=== PATIENT | female | born 1965 | race Caucasian/White ===

== ENCOUNTER 2018-01-10 16:31 | Observation (INO) | payer MEDICAID, SELFPAY ==
[2018-01-10] VITALS (9 sets, daily range): BP systolic 115–143; BP diastolic 49–71; PULSE 62–82; RESP 14–18; TEMP 36.4–36.6; O2SAT 97–100; BMI 30.1; BMI 30.2
--- NOTE | 2018-01-10 16:44 | EKG12_ITS ---
Test Reason : CP Blood Pressure : / mmHG Vent. Rate : 064 BPM Atrial Rate : 064 BPM P-R Int : 148 ms QRS Dur : 088 ms QT Int : 398 ms P-R-T Axes : 041 006 017 degrees QTc Int : 410 ms Normal sinus rhythm with sinus arrhythmia Normal ECG Confirmed by ERICK BOYKIN, EDUARDO ([id number]), editor producer FILOMENA KIM ([id number] on 01/12/2018 2:15:55 PM Referred By: CHANELL/HAILEY Confirmed By:EDUARDO SUAREZ MD
--- NOTE | 2018-01-10 16:45 | RAD_ITS ---
STUDY: X-RAY CHEST REASON FOR EXAM: Female, 52 years old. Chest pain with right leg pain. History of DVT. TECHNIQUE: Single frontal view of the chest. COMPARISON: October 31, 2017 FINDINGS: The lungs are clear and expanded. There is no demonstrated pleural abnormality. Normal size heart. Normal mediastinum and gay. Normal visualized pulmonary arteries. Normal visualized aortic arch and descending thoracic aorta. Normal visualized thoracic spine. Normal visualized ribs, clavicles, and shoulders. There is no demonstrated abnormality of the visualized soft tissue structures of the upper abdomen. RAD/Chest 1 View (Portable) IMPRESSION: No interval change and no acute pathology. Electronically Signed: Roosevelt Galindo MD at 17:10 EST , Service support ,
[2018-01-10 17:13] LABS: Bacteria 0 SEEN /hpf (None Seen); Mucous, Urine 0 SEEN /hpf (<or=2+); Red Blood Cells-Urine 0 SEEN /hpf (0-5)
[2018-01-10] MEDS: Aspirin 81 MG TAB.CHEW 324 MG PO (17:17)
--- NOTE | 2018-01-10 17:20 | ED.DCSUM_ITS ---
- ER Visit Summary Date of Service: 01/10/18 Chief Complaint: Chest pain History of Present Illness: The patient is a 52 F presenting from her doctor's office for chest pain. Patient states that she has had intermittent chest pain for the past 5 days. She states it radiates to her left arm. It is associated shortness of breath. She states she was admitted in October for similar complaints and had a stress test which was unremarkable. She also states that she was recently diagnosed with a UTI. She was on Cipro which she states gave her diarrhea. She was changed to Bactrim. She states she had side effects of Bactrim also and was changed to Macrobid. She is unsure if she still has a UTI. She has history of hypertension. Remote history of DVT. She is not on anticoagulants. No other coronary artery disease risk factor. No other PE/DVT risk factors. Physical Examination: Vitals are stable. Patient is afebrile. Alert no acute distress. HEENT exam is unremarkable. Neck is supple. Lungs are clear and equal bilaterally. Heart is regular rate and rhythm. Abdomen is soft nontender nondistended. Extremities are right calf tenderness. No erythema or warmth. Normal distal pulses. Skin is warm and dry. No focal neurologic deficit. Remainder of exam is unremarkable. Emergency Department Course and Treatment: Patient was given aspirin on arrival. EKG sinus rhythm rate of 64. Right lower extremity venous Doppler shows no DVT. Chest xray shows no acute process. CBC, chemistries unremarkable. Urinalysis is normal. Troponin is negative. D-dimer is elevated 2.84. Due to elevated d-dimer CTA chest was obtained and shows no evidence of PE. Discussed with Dr. Faulkner and hospitalist for admission. Disposition: Admission Impression: Chest pain This note was generated with [employer] dictation software. It may contain incorrect words, spelling, and punctuation that were not noted in review of the chart prior to signing ED Disposition - Plan for ED Patient: Chief Complaint: Chest Pain Referrals: Sabrina Ochoa MD [Primary Care Provider] -
[2018-01-10 17:21] LABS: Absolute Lymphocyte Count 3.37 X10^3/ul (0.83-4.51); Absolute Neutrophil Count 4.8 X10^3/uL (2.0-7.7); Basophil# 0.05 X10^3/uL; Basophil% 0.6 % (0-1); Eosinophil# 0.21 X10^3/uL; Eosinophils% 2.3 % (0-5); Hematocrit 40.9 % (37-47); Hemoglobin 13.7 g/dl (12.0-15.0); Lymphocyte # 3.37 X10^3/ul (4.0); Lymphocyte % 37.1 % (19-41); Mean Corp Hgb Conc 33.5 g/gl (32-36); Mean Corpuscular Hgb 28.8 pg (27.0-32.0); Mean Corpuscular Volume 85.9 fL (81-99); Monocyte# 0.63 X10^3/uL; Monocyte% 6.9 % (0-10); Neutrophil # 4.82 X10^3/uL (2.7-7.7); Platelet Count 297 K/mm3 (150-450); RBC Distribution Width CV 13.3 % (11.6-14.6); RBC Distribution Width SD 41.2 fl (35.1-43.9); Red Blood Count 4.76 M/mm3 (4.2-5.4); White Blood Count 9.1 K/mm3 (4.4-11.0)
--- NOTE | 2018-01-10 17:21 | US_ITS ---
STUDY: VENOUS DOPPLER ULTRASOUND - RIGHT LOWER EXTREMITY REASON FOR EXAM: Female, 52 years old. Right posterior calf pain TECHNIQUE: Ultrasound evaluation of the deep vein system to include lugo-scale imaging and compression was performed. Lugo-scale imaging and Doppler sonographic evaluation, including duplex spectral analysis and qualitative color flow sonography, was performed. COMPARISON: None. FINDINGS: Common Femoral Vein: Normal compression, spontaneity and augmentation. Normal color Doppler. Common Femoral Vein/Greater Saphenous Junction: Normal compression. No internal echoes. Deep Femoral Vein: Not imaged Femoral Proximal: Normal compression and no internal echoes. Femoral Middle: Normal compression, spontaneity and augmentation. Normal color Doppler. Femoral Distal: Normal compression and no internal echoes. Popliteal Vein: Normal compression, spontaneity and augmentation. Normal color Doppler. Posterior Tibial Vein: Normal compression and no internal echoes. Peroneal Vein: Normal compression and no internal echoes. US/Venous Duplex Imag/Limited/Uni IMPRESSION: Normal venous Doppler ultrasound of the lower extremity. Electronically Signed: Eris Whitfield MD at 18:21 EST , Service support ,
[2018-01-10 17:25] LABS: POSITIVE COUNT NO; POSITIVE DIFFERENTIAL NO; POSITIVE MORPHOLOGY NO
[2018-01-10 17:28] LABS: D-Dimer Quantitative (DVT/PE) 2.84 FEU/ug/m (0.27-0.49)
--- NOTE | 2018-01-10 17:28 | CT_ITS ---
STUDY: CTA CHEST REASON FOR EXAM: Female, 52 years old. Chest pain, elevated d-dimer RADIATION DOSAGE (If Supplied By Facility): CTDIvol = ( 12.42 ) mGy, DLP = ( 519.27 ) mGycm TECHNIQUE: The examination was performed with the intravenous administration of 100ML ml of Isovue 300 contrast material. Post-processing of the angiographic images was performed, with multiplanar reformation and 3D reconstruction. Individualized dose optimization techniques were used for this CT. COMPARISON: Previous study of 10/31/2017 FINDINGS: There is limited enhancement of the main pulmonary artery and right and left pulmonary arteries. There is limited enhancement of the bilateral peripheral pulmonary arteries. There is no demonstrated pulmonary embolism. Normal thoracic aorta and visualized great vessels. There is no demonstrated aortic dissection. Normal heart and pericardium. Normal mediastinum. Normal hilar regions. Normal visualized trachea and bronchi. The lungs are well expanded. Normal pulmonary parenchyma. Normal pleura. Normal chest wall structures. There are degenerative changes of thoracic spine. Status post cholecystectomy changes are noted. There are numerous scattered hepatic cysts measuring up to 1.[address]/CTA Chest W/WO Contrast IMPRESSION: Limited study secondary to suboptimal opacification of the pulmonary arterial system. There is no demonstrable evidence of pulmonary embolism. Status post cholecystectomy. Scattered hepatic cysts measuring up to 1.8 cm in diameter. Electronically Signed: Eris Whitfield MD at 19:15 EST , Service support ,
[2018-01-10 17:32] LABS: Color, Urine Yellow (Yellow); Glucose, Dipstick Normal (Normal); Ketone-Dipstick Negative (Negative); Leukocyte Esterase-Dipstick 25 /ul (Negative); Nitrite-Dipstick Negative (Negative); Occult Blood-Urine Negative /ul (Negative); Protein-Dipstick Negative (Negative); Specific Gravity, Urine 1.025 (1.002-1.030); Urine Bilirubin Dipstick Negative (Negative); Urine Clarity Clear (Clear); Urine Urobilinogen Normal (Normal)
[2018-01-10 17:35] LABS: Anion Gap 4 (5-15); BUN 16 mg/dL (7-18); BUN/Creat Ratio 28.1 RATIO (10-20); Calcium,Total 9.2 mg/dL (8.5-10.1); Chloride 107 mmol/L (98-107); Creatinine, Serum 0.57 mg/dL (0.55-1.02); EST Glomerular Filtration Rate 118 mL/min (>60); Est Glom Filt Rate - Afr Amer 142 mL/min (>60); Estimated Creatinine Clearance 97.43 ml/min; Glucose 94 mg/dL (74-106); Potassium 3.6 mmol/L (3.5-5.1); Sodium Level 141 mmol/L (136-145)
[2018-01-10 17:56] LABS: Squamous Epithelial Cells - UA 0-5 SEEN /hpf (5-10); White Blood Cells 0-5 SEEN /hpf (0-5)
--- NOTE | 2018-01-10 20:57 | PCM.HP.STD ---
Problem List (1) Chest pain Status: Acute Qualifiers: Chest pain type: unspecified Qualified Code(s): R07.9 - Chest pain, unspecified History of Present Illness Date of Admission: 01/10/18 Chief Complaint: chest pain The patient is a 52 year old female patient who states she woke up this morning with chest pain. She has been having chest pain symptoms for the past few months. She in fact, had a negative cardiac stress test in October of 2017. She described the pain as substernal pressure that radiated toward her right shoulder. The pain is now gone. No nausea or vomiting or fevers or chills. She will be admitted for heart catheterization in the am to rule out cardiac etiology of this chest pain. Past Medical History Allergies lisinopril Allergy (Severe, Verified 01/10/18 16:35) Angioedema metoprolol succinate [From Toprol XL] Allergy (Severe, Verified 01/10/18 16:35) Angioedema buspirone HCl [From BuSpar] Allergy (Verified 01/10/18 16:35) Unknown clindamycin Allergy (Verified 01/10/18 16:35) Unknown metronidazole Allergy (Verified 01/10/18 16:35) Unknown progesterone Allergy (Verified 01/10/18 16:35) Unknown ranitidine HCl [From Zantac] Allergy (Verified 01/10/18 16:35) Unknown Home Medications: Ambulatory Orders Medication Instructions Recorded Verapamil [Calan] 40 mg PO BID 05/16/15 Cholecalciferol (VIT D3) [Vitamin 4,000 unit PO DAILY 08/01/16 D3] Nitroglycerin [Nitrostat] 0.4 mg SL PRN PRN 10/31/17 Surgical History: cholecystectomy, - - [employer] History: No pertinent [employer] history Smoking Status: Never smoker - *Family History Maternal History Items: Heart Disease Paternal History Items: Unknown Sibling History Items: Cancer Review of Systems Constitutional: Denies: Chills, Fever, Weight Change HEENT: Denies: Head Aches, Sinus Congestion, Sinus Drainage Cardiovascular: Reports: Chest Pain. Denies: Palpitations Respiratory: Denies: Cough, Shortness of breath at rest, Sputum production Gastrointestinal: Denies: Abdominal Pain, Nausea, Vomiting Genitourinary: Denies: Dysuria Musculoskeletal: Denies: Joint Pain, Joint Tenderness Skin: Denies: Rash, Wounds Neurological: Denies: Numbness, Tingling, Focal weakness Psychiatric: Denies: Anxiety, Depression, Homicidal Ideations, Suicidal Ideations Hematologic/ Lymphatic: Denies: Easy Bruising, Easy Bleeding VTE Information - Inpt Only VTE Present on Admission: No VTE Mechan Device Prophylaxis: None VTE Pharm Prophylaxis ordered?: Yes - Physical Exam General: Alert, Oriented x3, Cooperative HEENT: Atraumatic, Normocephalic Neck: Supple Lungs: Clear to auscultation, Normal air movement, No rhonchi, No wheeze, No rales Cardiovascular: Regular rate, Regular Rhythm, Normal S1, Normal S2, No murmurs Abdomen: Bowel Sounds Present, Soft, Non Tender, Obese Extremities: No edema, Capillary Refill Less than 3 Seconds Skin: No rashes Musculoskeletal: No Tenderness to Palpation of Joints or Extremities Neurological: Neuro grossly intact Psych/Mental Status: Normal Affect, Appropriate Vital Signs Temp Pulse Resp BP Pulse Ox 97.6 F L 63 18 143/71 H 98 01/10/18 16:32 01/10/18 19:59 01/10/18 19:59 01/10/18 19:59 01/10/18 19:59 Oxygen Delivery Method Room Air Weight: 175 lb 11.335 oz Body Mass Index (BMI) 30.1 Laboratory Tests Past 24 Hrs 01/10/18 01/10/18 01/10/18 16:39 16:39 16:39 WBC 9.1 RBC 4.76 Hgb 13.7 Hct 40.9 MCV 85.9 MCH 28.8 MCHC 33.5 RDW 13.3 RDW Differential 41.2 Plt Count 297 MPV 10.0 Immature Gran % (Auto) 0.100 Neut % (Auto) 53.0 Lymph % (Auto) 37.1 [place] % (Auto) 6.9 Eos % (Auto) 2.3 Baso % (Auto) 0.6 Absolute Neuts (auto) 4.8 Absolute Lymphs (auto) 3.37 Total Counted Not Reportable D-Dimer Quant (PE/DVT) 2.84 H* Sodium 141 Potassium 3.6 Chloride 107 Carbon Dioxide 30.0 Anion Gap 4 L BUN 16 Creatinine 0.57 Estim Creat Clear Calc 97.43 Est GFR (MDRD) Af Amer 142 Est GFR (MDRD) Non-Af 118 BUN/Creatinine Ratio 28.1 H Glucose 94 Calcium 9.2 Troponin I < 0.02 Urine Color Urine Clarity Urine pH Ur Specific [place] Urine Protein Urine Glucose (UA) Urine Ketones Urine Occult Blood Urine Nitrite Urine Bilirubin Urine Urobilinogen Ur Leukocyte Esterase Urine RBC Urine WBC Ur Squamous Epith Cells Urine Bacteria Urine Mucus 01/10/18 17:05 WBC RBC Hgb Hct MCV MCH MCHC RDW RDW Differential Plt Count MPV Immature Gran % (Auto) Neut % (Auto) Lymph % (Auto) [place] % (Auto) Eos % (Auto) Baso % (Auto) Absolute Neuts (auto) Absolute Lymphs (auto) Total Counted D-Dimer Quant (PE/DVT) Sodium Potassium Chloride Carbon Dioxide Anion Gap BUN Creatinine Estim Creat Clear Calc Est GFR (MDRD) Af Amer Est GFR (MDRD) Non-Af BUN/Creatinine Ratio Glucose Calcium Troponin I Urine Color Yellow Urine Clarity Clear Urine pH 6.0 Ur Specific [place] 1.025 Urine Protein Negative Urine Glucose (UA) Normal Urine Ketones Negative Urine Occult Blood Negative Urine Nitrite Negative Urine Bilirubin Negative Urine Urobilinogen Normal Ur Leukocyte Esterase 25 H Urine RBC 0 SEEN Urine WBC 0-5 SEEN Ur Squamous Epith Cells 0-5 SEEN Urine Bacteria 0 SEEN Urine Mucus 0 SEEN Assessment/Plan Assessment - Chest Pain Plan - admit to PCU - NPO at midnight - Consult Dr Faulkner for cardiac management - morphine, oxygen , nitro and apirin per routine protocol - continue routine home medications for stable medical conditions - LMWH for DVT prophylaxis Code Visit Inpatient E&M: 07045 Init Hosp L3
[2018-01-11 03:08] VITALS: PULSE 58
[2018-01-11 03:30] VITALS: BP 110/62; PULSE 60; RESP 18; TEMP 36.5; O2SAT 99
--- NOTE | 2018-01-11 05:55 | EKG12_ITS ---
Test Reason : MORNING EKG Blood Pressure : / mmHG Vent. Rate : 073 BPM Atrial Rate : 073 BPM P-R Int : 158 ms QRS Dur : 082 ms QT Int : 394 ms P-R-T Axes : 055 037 030 degrees QTc Int : 434 ms Normal sinus rhythm Normal ECG When compared with ECG of 10-JAN-2018 16:34, MANUAL COMPARISON REQUIRED, DATA IS UNCONFIRMED Confirmed by ERICK BOYKIN, EDUARDO ([id number]), editorial specialist FILOMENA KIM ([id number]) on 01/12/2018 2:46:56 PM Referred By: Confirmed By:EDUARDO SUAREZ MD
--- NOTE | 2018-01-11 07:07 | CON.PCM_ITS ---
Reason for Consult Date of Consultation: 01/11/18 Reason for Consultation: Chest pain History of Present Illness: The patient is a 52 year old F with no previous cardiac history who presented to the emergency room complaining of chest discomfort which she says also radiated to her left arm. It was not necessarily related to activity there were no associated palpitations no nausea no diaphoresis no dizziness no presyncope or syncope. She says that approximately 2 or 3 years ago she underwent a pharmacologic myocardial perfusion stress test which was normal and she was subsequently diagnosed with sleep apnea. She had presented in October of last year as well with chest discomfort she underwent an echocardiogram which demonstrated preserved ejection fraction of 55% with 1+ mitral and tricuspid regurgitation. She also underwent stress testing which did not demonstrate any evidence of ischemia. She recently had a urinary tract infection and was placed on antibiotics and she said she had a reaction to this. She has also had a change to the antibiotics and afterwards she started having the above problems. She also has a history of fibromyalgia. In the emergency room she was evaluated and EKG was noted to be normal and a d-dimer was elevated and so she underwent a CT scan which was normal. Cardiac enzymes were also normal with no EKG changes cardiology was asked to see this morning. Currently she is pain-free [] [] Past Medical History Allergies/Adverse Reactions: Allergies lisinopril Allergy (Severe, Verified 01/10/18 16:35) Angioedema metoprolol succinate [From Toprol XL] Allergy (Severe, Verified 01/10/18 16:35) Angioedema buspirone HCl [From BuSpar] Allergy (Verified 01/10/18 16:35) Unknown clindamycin Allergy (Verified 01/10/18 16:35) Unknown metronidazole Allergy (Verified 01/10/18 16:35) Unknown progesterone Allergy (Verified 01/10/18 16:35) Unknown ranitidine HCl [From Zantac] Allergy (Verified 01/10/18 16:35) Unknown Home Medications: Ambulatory Orders Medication Instructions Recorded Verapamil [Calan] 40 mg PO BID 05/16/15 Cholecalciferol (VIT D3) [Vitamin 4,000 unit PO DAILY 08/01/16 D3] Nitroglycerin [Nitrostat] 0.4 mg SL PRN PRN 10/31/17 Surgical History: cholecystectomy, - - [employer] History: No pertinent [employer] history - *Family History Maternal History Items: Heart Disease Paternal History Items: Unknown Sibling History Items: Cancer Smoking Status: Never smoker Alcohol: None Drugs: None Review of Systems - Review of Systems General: Denies: Fever, Night Sweats, Fatigue Cardiovascular: Reports: Chest Discomfort. Denies: Shortness of Breath, Orthopnea, PND, Peripheral Edema, Palpitations, Lightheadedness, Dizziness, Near Syncope, Syncope Respiratory: Denies: Cough, Sputum Production, Hemoptysis Gastrointestinal: Denies: Hematemesis, Hematochezia, Melena Genitourinary: Denies: Dysuria, Hematuria Skin: Denies: Rash Subjectve: Middle aged lady in no distress but rather anxious Objective: Vital Signs Temp Pulse Resp BP Pulse Ox 97.7 F L 60 18 110/62 99 01/11/18 03:30 01/11/18 03:30 01/11/18 03:30 01/11/18 03:30 01/11/18 03:30 Oxygen Delivery Method Room Air Weight: 175 lb 11.335 oz Body Mass Index (BMI) 30.1 Intake and Output for Last 24 Hours 01/09/18 01/10/18 01/11/18 23:59 23:59 23:59 Intake Total 240 / 240 0 / 0 Balance 240 / 240 0 / 0 General: Awake, Alert, Oriented x 3 HEENT: PERRL, EOMI, Sclera Non Icteric Neck: Supple, Good ROM, No Lymph Node Enlargement Lungs: Clear to auscultation Cardiovascular: Regular Rhythm, Normal S1, Normal S2, No Murmurs, No Rubs, No Gallops Vascular: No Carotid Bruits, Normal Femoral Pulses, Normal Radial Pulses, Normal Dorsalis Pedal Pulse, Normal Posterior Tibial Pulses Abdomen: Bowel Sounds Present, Soft, Non Tender, No HSM, No Organomegaly Extremities: No Cyanosis, No Clubbing, No edema Neurological: No Focal Motor or Sensory Deficit 01/10/18 22:41: Troponin I < 0.02 01/11/18 02:15: Troponin I < 0.02 Rhythm: EKG: Sinus rhythm with no acute changes. Assessment/Plan 1. Chest pain-atypical He presents once again with chest discomfort which is rather atypical. She has recently undergone a stress test as well as a myocardial perfusion scan both of which are normal. Her EKG is normal and cardiac enzymes are normal. I do not feel on the basis of this that we need to perform a cardiac catheterization just to include coronary disease when her FRANCISCA risk factor score is so low and her symptoms atypical. I would suggest reassurance and treatment for also GI related issues. I have discussed the above with her and she understands and agrees to proceed I think she can be discharged for outpatient follow-up.
[2018-01-11 07:08] VITALS: PULSE 62
[2018-01-11 07:49] LABS: Absolute Neutrophil Count 3.8 X10^3/uL (2.0-7.7); Basophil# 0.03 X10^3/uL; Basophil% 0.5 % (0-1); Eosinophil# 0.15 X10^3/uL; Eosinophils% 2.3 % (0-5); Hematocrit 38.4 % (37-47); Hemoglobin 12.9 g/dl (12.0-15.0); Lymphocyte % 29.2 % (19-41); Mean Corp Hgb Conc 33.6 g/gl (32-36); Mean Corpuscular Hgb 28.7 pg (27.0-32.0); Mean Corpuscular Volume 85.5 fL (81-99); Mean Platelet Vol. 9.6 fl (6.2-12.0); Monocyte# 0.65 X10^3/uL; Neutrophil # 3.77 X10^3/uL (2.7-7.7); Neutrophil % 57.8 % (47-70); Platelet Count 271 K/mm3 (150-450); RBC Distribution Width CV 13.3 % (11.6-14.6); RBC Distribution Width SD 41.1 fl (35.1-43.9); Red Blood Count 4.49 M/mm3 (4.2-5.4); White Blood Count 6.5 K/mm3 (4.4-11.0)
[2018-01-11 07:52] LABS: POSITIVE COUNT NO; POSITIVE DIFFERENTIAL NO; POSITIVE MORPHOLOGY NO
[2018-01-11 08:24] LABS: AST(SGOT) 11 U/L (15-37); Alanine Aminotransfer ALT/SGPT 16 U/L (13-56); Albumin, Serum 3.5 g/dL (3.2-5.0); Alkaline Phosphatase 65 U/L (45-117); Anion Gap 7 (5-15); BUN 13 mg/dL (7-18); BUN/Creat Ratio 27.4 RATIO (10-20); Bilirubin, Direct 0.07 mg/dL (0.00-0.30); Calcium,Total 8.6 mg/dL (8.5-10.1); Chloride 111 mmol/L (98-107); Creatinine, Serum 0.48 mg/dL (0.55-1.02); EST Glomerular Filtration Rate 145 mL/min (>60); Est Glom Filt Rate - Afr Amer 175 mL/min (>60); Globulin 3.5 g/dL (2.2-4.2); Glucose 96 mg/dL (74-106); Magnesium 2.3 mg/dL (1.6-2.6); Potassium 3.9 mmol/L (3.5-5.1); Sodium Level 145 mmol/L (136-145); Thyroid Stim Hormone (TSH) 2.42 uIU/mL (0.358-3.74)
--- NOTE | 2018-01-11 08:48 | PCM.PN.HOSP ---
Subjective: No acute events overnight per self and per nursing report. Patient denies any current or further chest discomfort. Evaluated by industrial engineering analyst this morning and given atypical chest discomfort, normal cardiac enzymes, resolved chest discomfort recommendation for continued outpatient evaluation, no need for cardiac catheterization is low risk she was amenable. Patient denies fevers, chills, nausea, emesis, abdominal pain, dyspnea or further chest pain. Objective: Physical Examination: General: awake, alert, oriented x 3 and cooperative, walking in the room initially, seated upright. Skin: normal color, turgor, no icterus, cyanosis. HEENT: AT/NC, EOMI, PERRLA, MMM. Lungs: CTA bilaterally, moderate effort, mild decrease BL bases, no rales, ronchi or wheezing. Heart: Regular rate and rhythm; no gallop, rub audible. Abdomen: soft, NTTP, ND, normal BS. Extremities: no cyanosis, clubbing, or edema. Neurological: patient awake, alert, oriented x 3; cognitive function intact; pupils equally reactive to light and accomodation; cranial nerves II-XII grossly normal, moving all 4 extremities, no focal deficits, strength preserved. Psychiatric: affect appears normal, no acute evidence of depressive or anxiety feelings. Vitals/I&O's: Vital Signs Temp Pulse Resp BP Pulse Ox 97.7 F L 62 18 110/62 99 01/11/18 03:30 01/11/18 07:08 01/11/18 03:30 01/11/18 03:30 01/11/18 03:30 Oxygen Delivery Method Room Air Weight: 175 lb 11.335 oz Body Mass Index (BMI) 30.1 Intake and Output for Last 24 Hours 01/09/18 01/10/18 01/11/18 23:59 23:59 23:59 Intake Total 240 / 240 0 / 0 Balance 240 / 240 0 / 0 Laboratory Results 01/10/18 22:41: Troponin I < 0.02 01/11/18 02:15: Troponin I < 0.02 01/11/18 07:35: WBC 6.5, RBC 4.49, Hgb 12.9, Hct 38.4, MCV 85.5, MCH 28.7, MCHC 33.6, RDW 13.3, RDW Differential 41.1, Plt Count 271, MPV 9.6, Immature Gran % (Auto) 0.200, Neut % (Auto) 57.8, Lymph % (Auto) 29.2, [place] % (Auto) 10.0, Eos % (Auto) 2.3, Baso % (Auto) 0.5, Absolute Neuts (auto) 3.8, Absolute Lymphs (auto) 1.90, Total Counted Not Reportable 01/11/18 07:35: Sodium 145, Potassium 3.9, Chloride 111 H, Carbon Dioxide 27.0, Anion Gap 7, BUN 13, Creatinine 0.48 L, Estim Creat Clear Calc 115.70, Est GFR (MDRD) Af Amer 175, Est GFR (MDRD) Non-Af 145, BUN/Creatinine Ratio 27.4 H, Glucose 96, Calcium 8.6, Magnesium 2.3, Total Bilirubin 0.40, Direct Bilirubin 0.07, AST 11 L, ALT 16, Alkaline Phosphatase 65, Troponin I < 0.02, Total Protein 7.0, Albumin 3.5, Globulin 3.5, Albumin/Globulin Ratio 1.0, TSH 2.42 Current Medications Aspirin (Ecotrin) 325 mg PO DAILY@0800 [facility] Cholecalciferol (Vitamin D) 4,000 unit PO DAILY [facility] Enoxaparin Sodium (Lovenox) 40 mg SC DAILY@1000 [facility] Magnesium Hydroxide (Milk Of Magnesia) 30 ml PO DAILY PRN PRN Reason: Constipation Morphine Sulfate (Morphine) 2 mg IV Q3H PRN PRN PRN Reason: SEVERE PAIN (6-10/10) Nitroglycerin (Nitrostat) 0.4 mg SUBLINGUAL Q5M PRN PRN Reason: CHEST PAIN Pantoprazole Sodium (Protonix) 20 mg PO DAILY [facility] Sodium Chloride () 5 - 30 ml IV UD PRN PRN Reason: SALINE FLUSH Verapamil HCl (Calan) 40 mg PO BID [facility] Last Admin: 01/10/18 22:47 Dose: 40 mg Assessment/Plan The patient is a 52 y/o F w/ PMHx: Fibromyalgia, Hx DVT, Vitamin D Deficiency, HTN, Palpitations, Obesity, HLD, recent stress testing 11/01/2017 noted to be negative for evidence of ischemia who presents to the [facility] ED on 01/10/18 with onset chest pain upon waking, noted to have intermittent symptoms ongoing since stress testing as noted, described as substernal pressure radiating toward her R shoulder. (1) Chest Pain, Atypical: EKG in ED w/ SR without acute evidence of ischemia, CXR w/ no acute process. Trop normal x 4. Admitted to the PCU, maintained on telemetry cardiac enzymes cycled and remained normal, magnesium normal, FLP obtained recently 10/2017 admission with statin start at that time. Continue medical management w/ asa, BB, statin w/ AM FLP. Cardiology consulted, given atypical and unremarkable evaluation thus far, given low FRANCISCA score and low risk, recommendation for discharge to home with follow-up outpatient, deferred cardiac catheterization. Will d/c to home as recommended per Cardiology. (2) Hypertension, Palpitations: maintain on home calan regimen, PRN hydralazine. BPs appropriate. (3) Hyperlipidemia: Continue home statin regimen. (4) Obesity: Weight loss and lifestyle changes encouraged. (5) GERD: PPI. (6) DVT Prophylaxis: SCDs, lovenox.
--- NOTE | 2018-01-11 08:54 | PN_ITS ---
Subjective: No acute events overnight per self and per nursing report. Patient denies any current or further chest discomfort. Evaluated by platform beater this morning and given atypical chest discomfort, normal cardiac enzymes, resolved chest discomfort recommendation for continued outpatient evaluation, no need for cardiac catheterization is low risk she was amenable. Patient denies fevers, chills, nausea, emesis, abdominal pain, dyspnea or further chest pain. Objective: Physical Examination: General: awake, alert, oriented x 3 and cooperative, walking in the room initially, seated upright. Skin: normal color, turgor, no icterus, cyanosis. HEENT: AT/NC, EOMI, PERRLA, MMM. Lungs: CTA bilaterally, moderate effort, mild decrease BL bases, no rales, ronchi or wheezing. Heart: Regular rate and rhythm; no gallop, rub audible. Abdomen: soft, NTTP, ND, normal BS. Extremities: no cyanosis, clubbing, or edema. Neurological: patient awake, alert, oriented x 3; cognitive function intact; pupils equally reactive to light and accomodation; cranial nerves II-XII grossly normal, moving all 4 extremities, no focal deficits, strength preserved. Psychiatric: affect appears normal, no acute evidence of depressive or anxiety feelings. Vitals/I&O's: Vital Signs Temp Pulse Resp BP Pulse Ox 97.7 F L 62 18 110/62 99 01/11/18 03:30 01/11/18 07:08 01/11/18 03:30 01/11/18 03:30 01/11/18 03:30 Oxygen Delivery Method Room Air Weight: 175 lb 11.335 oz Body Mass Index (BMI) 30.1 Intake and Output for Last 24 Hours 01/09/18 01/10/18 01/11/18 23:59 23:59 23:59 Intake Total 240 / 240 0 / 0 Balance 240 / 240 0 / 0 Laboratory Results 01/10/18 22:41: Troponin I < 0.02 01/11/18 02:15: Troponin I < 0.02 01/11/18 07:35: WBC 6.5, RBC 4.49, Hgb 12.9, Hct 38.4, MCV 85.5, MCH 28.7, MCHC 33.6, RDW 13.3, RDW Differential 41.1, Plt Count 271, MPV 9.6, Immature Gran % ( Auto) 0.200, Neut % (Auto) 57.8, Lymph % (Auto) 29.2, Hendricks % (Auto) 10.0, Eos % (Auto) 2.3, Baso % (Auto) 0.5, Absolute Neuts (auto) 3.8, Absolute Lymphs (auto ) 1.90, Total Counted Not Reportable 01/11/18 07:35: Sodium 145, Potassium 3.9, Chloride 111 H, Carbon Dioxide 27.0, Anion Gap 7, BUN 13, Creatinine 0.48 L, Estim Creat Clear Calc 115.70, Est GFR ( MDRD) Af Amer 175, Est GFR (MDRD) Non-Af 145, BUN/Creatinine Ratio 27.4 H, Glucose 96, Calcium 8.6, Magnesium 2.3, Total Bilirubin 0.40, Direct Bilirubin 0.07, AST 11 L, ALT 16, Alkaline Phosphatase 65, Troponin I < 0.02, Total Protein 7.0, Albumin 3.5, Globulin 3.5, Albumin/Globulin Ratio 1.0, TSH 2.42 Current Medications Aspirin (Ecotrin) 325 mg PO DAILY@0800 [facility] Cholecalciferol (Vitamin D) 4,000 unit PO DAILY [facility] Enoxaparin Sodium (Lovenox) 40 mg SC DAILY@1000 [facility] Magnesium Hydroxide (Milk Of Magnesia) 30 ml PO DAILY PRN PRN Reason: Constipation Morphine Sulfate (Morphine) 2 mg IV Q3H PRN PRN PRN Reason: SEVERE PAIN (6-10/10) Nitroglycerin (Nitrostat) 0.4 mg SUBLINGUAL Q5M PRN PRN Reason: CHEST PAIN Pantoprazole Sodium (Protonix) 20 mg PO DAILY [facility] Sodium Chloride () 5 - 30 ml IV UD PRN PRN Reason: SALINE FLUSH Verapamil HCl (Calan) 40 mg PO BID [facility] Last Admin: 01/10/18 22:47 Dose: 40 mg Assessment/Plan The patient is a 52 y/o F w/ PMHx: Fibromyalgia, Hx DVT, Vitamin D Deficiency, HTN, Palpitations, Obesity, HLD, recent stress testing 11/01/2017 noted to be negative for evidence of ischemia who presents to the [facility] ED on 01/10/18 with onset chest pain upon waking, noted to have intermittent symptoms ongoing since stress testing as noted, described as substernal pressure radiating toward her R shoulder. (1) Chest Pain, Atypical: EKG in ED w/ SR without acute evidence of ischemia, CXR w/ no acute process. Trop normal x 4. Admitted to the PCU, maintained on telemetry cardiac enzymes cycled and remained normal, magnesium normal, FLP obtained recently 10/2017 admission with statin start at that time. Continue medical management w/ asa, BB, statin w/ AM FLP. Cardiology consulted, given atypical and unremarkable evaluation thus far, given low FRANCISCA score and low risk , recommendation for discharge to home with follow-up outpatient, deferred cardiac catheterization. Will d/c to home as recommended per Cardiology. (2) Hypertension, Palpitations: maintain on home calan regimen, PRN hydralazine. BPs appropriate. (3) Hyperlipidemia: Continue home statin regimen. (4) Obesity: Weight loss and lifestyle changes encouraged. (5) GERD: PPI. (6) DVT Prophylaxis: SCDs, lovenox.
[2018-01-11 09:30] VITALS: BP 123/53; PULSE 64; RESP 16; TEMP 36.8; O2SAT 97
[2018-01-11] MEDS: Enoxaparin 40 MG/0.4 ML Syringe SC (09:36)
[2018-01-11] MEDS: Pantoprazole Sodium 20 MG Tablet PO (09:36)
[2018-01-11] MEDS: Aspirin E.C. 325 MG Tablet PO (09:36)
[2018-01-11 11:01] VITALS: PULSE 71
--- NOTE | 2018-01-11 11:29 | PCM.DC ---
- Discharge Diagnoses Current Active Problems: (1) Chest Pain, Atypical (2) Hypertension, Palpitations (3) Hyperlipidemia (4) Obesity (5) GERD (6) Fibromyalgia You will use the following diet at home:: Cardiac Your food should be the consistency of: Regular Your liquids should be the consistency of: Regular/Thin Discharge Activity: Return to Normal Activity May resume sexual activity in: No Restrictions Weight Bearing Status: Weight bearing as tolerated Call your doctor if you observe: Fever of 101 or Higher, Inability to urinate, Inability to have a bowel movement, Shortness of breath, Dizziness, Fainting spells, Chest pain, Uncontrolled pain Instructions: ED Chest Pain NonCardiac, Eating Heart-Healthy Food: Using the DASH Plan, What Is GERD?, Lifestyle Changes for Controlling GERD, Medications for GERD Allergies/Adverse Reactions: Allergies lisinopril Allergy (Severe, Verified 01/10/18 16:35) Angioedema metoprolol succinate [From Toprol XL] Allergy (Severe, Verified 01/10/18 16:35) Angioedema buspirone HCl [From BuSpar] Allergy (Verified 01/10/18 16:35) Unknown clindamycin Allergy (Verified 01/10/18 16:35) Unknown metronidazole Allergy (Verified 01/10/18 16:35) Unknown progesterone Allergy (Verified 01/10/18 16:35) Unknown ranitidine HCl [From Zantac] Allergy (Verified 01/10/18 16:35) Unknown Medications to take at Discharge Verapamil [Calan] 40 mg PO BID 05/16/15 Cholecalciferol (VIT D3) [Vitamin D3] 4,000 unit PO DAILY 08/01/16 Nitroglycerin [Nitrostat] 0.4 mg SL PRN PRN 10/31/17 Aspirin [Aspirin, Baby] 81 mg PO DAILY@0800 #30 tab.chew 01/11/18 Pantoprazole Sodium [Protonix] 20 mg PO DAILY #30 tab 01/11/18 The following prescriptions were given: Aspirin [Aspirin, Baby] 81 mg PO DAILY@0800 #30 tab.chew Pantoprazole Sodium [Protonix] 20 mg PO DAILY #30 tab Primary Care Physician: Sabrina Ochoa MD [Primary Care Provider] - Please follow up with your Primary Care Physician in: Follow-up within 3-5 days to review admission, further evaluate outpatient. Please Follow Up With: Rg Faulkner MD When: Follow-up as needed with Cardiology or with questions abour recent eval. Proposed Discharge Date: 01/11/18
--- NOTE | 2018-01-11 11:32 | PCM.DC.SUM ---
Discharge Date and Diagnosis Date of Admission: 01/10/18 Date of Discharge: 01/11/18 - Primary Discharge Diagnosis (1) Chest Pain, Atypical (2) Hypertension, Palpitations (3) Hyperlipidemia (4) Obesity (5) GERD (6) Fibromyalgia - Secondary Discharge Diagnosis Hypertension, Palpitations Hyperlipidemia Obesity GERD Fibromyalgia Hospital Course and Treatment Cardiology Dr. Faulkner Operations: None Procedures: EKG Summary of Care Provided: The patient is a 52 y/o F w/ PMHx: Fibromyalgia, Hx DVT, Vitamin D Deficiency, HTN, Palpitations, Obesity, HLD, recent stress testing 11/01/2017 noted to be negative for evidence of ischemia who presented to the [facility] ED on 01/10/18 with onset chest pain upon waking, noted to have intermittent symptoms ongoing since stress testing as noted, described as substernal pressure radiating toward her R shoulder. EKG in ED w/ SR without acute evidence of ischemia, CXR w/ no acute process. Trop normal x 4. Admitted to the PCU, maintained on telemetry cardiac enzymes cycled and remained normal, magnesium normal, FLP obtained recently 10/2017 admission with statin start at that time. Continue medical management w/ asa, calan, previously on statin but FLP not marked appearing this d/c outpatient. Cardiology consulted, given atypical and unremarkable evaluation thus far, given low FRANCISCA score and low risk, recommendation for discharge to home with follow-up outpatient, deferred cardiac catheterization. Patient discharged to home in stable condition, no further chest pain, recommended follow-up with PCP and Cardiology as needed. Discharge Activity: Return to Normal Activity May resume sexual activity in: No Restrictions Weight Bearing Status: Weight bearing as tolerated Call your doctor if you observe: Fever of 101 or Higher, Inability to urinate, Inability to have a bowel movement, Shortness of breath, Dizziness, Fainting spells, Chest pain, Uncontrolled pain Home Medications: Medications to take at Discharge Verapamil [Calan] 40 mg PO BID 05/16/15 Cholecalciferol (VIT D3) [Vitamin D3] 4,000 unit PO DAILY 08/01/16 Nitroglycerin [Nitrostat] 0.4 mg SL PRN PRN 10/31/17 Aspirin [Aspirin, Baby] 81 mg PO DAILY@0800 #30 tab.chew 01/11/18 Pantoprazole Sodium [Protonix] 20 mg PO DAILY #30 tab 01/11/18 Following Prescrptions Were Given to Patient: Aspirin [Aspirin, Baby] 81 mg PO DAILY@0800 #30 tab.chew Pantoprazole Sodium [Protonix] 20 mg PO DAILY #30 tab Primary Care Physician: Sabrina Ochoa MD [Primary Care Provider] - Please follow up with your Primary Care Physician in: Follow-up within 3-5 days to review admission, further evaluate outpatient. Please Follow Up With: Rg Faulkner MD When: Follow-up as needed with Cardiology or with questions abour recent eval. Patient Instructions: What Is GERD?, Lifestyle Changes for Controlling GERD, Medications for GERD, Eating Heart-Healthy Food: Using the DASH Plan, ED Chest Pain NonCardiac Disposition: Home Minutes spent on discharge:: 20 Patient Condition:: Fair Meaningful Use Info Meaningful Use Diagnoses (Choose all that apply): None applicable Code Visit OBSV E&M: 03486 Observation care discharge
== END 2018-01-11 13:05 | disposition home or self-care (01) ==
LOC: ED 21:13 → PCU 21:19
PROVIDERS: Admitting Provider Family Medicine; Emergency Provider Emergency Medicine; Family Provider Internal Medicine; PCP Internal Medicine; Visit Provider Family Medicine
DX: R07.89 Other chest pain (principal); R06.02 Shortness of breath; G47.30 Sleep apnea, unspecified; I10 Essential (primary) hypertension; M79.7 Fibromyalgia; E78.5 Hyperlipidemia, unspecified; K21.9 Gastro-esophageal reflux disease without esophagitis; E66.9 Obesity, unspecified; R00.2 Palpitations; E55.9 Vitamin D deficiency, unspecified; Z68.30 Body mass index [BMI] 30.0-30.9, adult; Z79.899 Other long term (current) drug therapy; Z86.718 Personal history of other venous thrombosis and embolism; Z71.3 Dietary counseling and surveillance
CPT/HCPCS: 36415; 71045; 71275; 80048; 80053; 81001; 82248; 83735; 84443; 84484; 85025; 85379; 93005; 93971; 96372; 99218; 99285; Q9967; A4216; G0378

== ENCOUNTER 2018-01-19 17:10 | Emergency (ER) | payer MEDICAID, SELFPAY ==
[2018-01-19 17:11] VITALS: BP 123/65; PULSE 64; RESP 20; TEMP 36.8; O2SAT 100; BMI 28.6
--- NOTE | 2018-01-19 17:29 | EKG12_ITS ---
Test Reason : ABNORMAL EKG Blood Pressure : / mmHG Vent. Rate : 057 BPM Atrial Rate : 057 BPM P-R Int : 154 ms QRS Dur : 082 ms QT Int : 408 ms P-R-T Axes : 047 014 026 degrees QTc Int : 397 ms Sinus bradycardia Otherwise normal ECG Confirmed by ERICK BOYKIN, EDUARDO ([id number]), order editor FILOMENA KIM ([id number] on 01/26/2018 4:14:37 PM Referred By: LONNIE Confirmed By:EDUARDO SUAREZ MD
[2018-01-19 17:48] VITALS: O2SAT 98
[2018-01-19] MEDS: Aspirin 81 MG TAB.CHEW 324 MG PO (17:49)
--- NOTE | 2018-01-19 17:58 | RAD_ITS ---
XR Chest 2 Views INDICATION: chest pain and SOB intermittently x1year per pt COMPARISON: January 10, 2018 TECHNIQUE: 2 views of the chest FINDINGS: Heart size and pulmonary vascularity are within normal limits. The lungs are clear without evidence of airspace consolidation or pleural effusion. The osseous structures are grossly unremarkable. RAD/Chest PA and Lateral IMPRESSION: No radiographic evidence of acute intrathoracic disease. at 1818 Reported and signed by: Nancy Hussein MD Electronically Signed: Nancy Hussein MD at 17:17 EST Tel , Service support ,
[2018-01-19 18:21] LABS: Anion Gap 6 (5-15); BUN 11 mg/dL (7-18); BUN/Creat Ratio 22.6 RATIO (10-20); Calcium,Total 8.7 mg/dL (8.5-10.1); Chloride 109 mmol/L (98-107); Creatinine, Serum 0.49 mg/dL (0.55-1.02); EST Glomerular Filtration Rate 141 mL/min (>60); Est Glom Filt Rate - Afr Amer 170 mL/min (>60); Estimated Creatinine Clearance 113.34 ml/min; Glucose 90 mg/dL (74-106); Potassium 3.5 mmol/L (3.5-5.1); Sodium Level 144 mmol/L (136-145)
[2018-01-19 18:26] LABS: Absolute Lymphocyte Count 3.05 X10^3/ul (0.83-4.51); Absolute Neutrophil Count 3.8 X10^3/uL (2.0-7.7); Basophil# 0.05 X10^3/uL; Basophil% 0.6 % (0-1); Eosinophils% 2.6 % (0-5); Hematocrit 37.9 % (37-47); Hemoglobin 12.2 g/dl (12.0-15.0); Lymphocyte # 3.05 X10^3/ul (4.0); Lymphocyte % 39.3 % (19-41); Mean Corp Hgb Conc 32.2 g/gl (32-36); Mean Corpuscular Hgb 27.7 pg (27.0-32.0); Mean Corpuscular Volume 85.9 fL (81-99); Mean Platelet Vol. 9.9 fl (6.2-12.0); Monocyte# 0.67 X10^3/uL; Monocyte% 8.6 % (0-10); Neutrophil # 3.79 X10^3/uL (2.7-7.7); Neutrophil % 48.9 % (47-70); Platelet Count 245 K/mm3 (150-450); RBC Distribution Width CV 13.4 % (11.6-14.6); RBC Distribution Width SD 42.2 fl (35.1-43.9); Red Blood Count 4.41 M/mm3 (4.2-5.4); White Blood Count 7.8 K/mm3 (4.4-11.0)
[2018-01-19 18:27] LABS: POSITIVE COUNT NO; POSITIVE DIFFERENTIAL NO; POSITIVE MORPHOLOGY NO
[2018-01-19 18:30] VITALS: BP 99/59; PULSE 81; RESP 21; O2SAT 96
--- NOTE | 2018-01-19 18:40 | ED.DCSUM_ITS ---
- ER Visit Summary Date of Service: 01/19/18 Chief Complaint: Chest pain and abnormal EKG History of Present Illness: The patient is a 52 F who presents with chest pain. It began about 3-4 hours ago. She is uncertain of the exact onset. It did begin at rest. She describes it as a substernal and left-sided chest pressure with radiation down the left arm. This is similar to pain that she has been having for months. She denies any nausea vomiting diaphoresis or shortness of breath. She was admitted in October and had a normal workup with normal EKG negative cardiac enzymes and normal stress testing as well as cardiology consultation. She was again admitted in December and had cardiology consultation again. It did not feel any further workup was necessary such as cardiac cath as it was felt to be noncardiac chest pain. She was at a follow- up appointment today in regards to a sleep study. She was complaining of chest pain and an EKG was obtained which was reportedly abnormal so the patient was sent here. Physical Examination: Afebrile vitals are unremarkable Heart regular rate and rhythm Lungs are clear Abdomen soft 2+ radial pulses Alert Test Results: EKG shows normal sinus rhythm at a rate of 57 unchanged from prior. CBC BMP troponin all normal. Emergency Department Course and Treatment: EKG from the office was reviewed and is actually normal. What was interpreted as ST elevation in leads I and II is due to artifact in a single complex. This is additionally not in an anatomical distribution. I also explained to the patient that the T-wave inversions in leads aVR and V1 that were pointed out to her are actually a normal finding. Given two recent hospitalizations for the same symptoms with recent negative stress test I do not believe rehospitalization or any further workup is necessary. Discharged home to follow-up as needed as an outpatient. Treatment Plan: [] Disposition: Discharge Impression: Chest pain This note was generated with [id number] Digital dictation software. It may contain incorrect words, spelling, and punctuation that were not noted in review of the chart prior to signing ED Disposition - Plan for ED Patient: Chief Complaint: Chest Pain Referrals: Sabrina Ochoa MD [Primary Care Provider] -
--- NOTE | 2018-01-19 18:44 | ED.DEP ---
ED Disposition - Plan for ED Patient: Chief Complaint: Chest Pain Instructions: ED Chest Pain NonCardiac Referrals: Sabrina Ochoa MD [Primary Care Provider] -
--- NOTE | 2018-01-19 18:50 | ED.DEP ---
ED Disposition - Plan for ED Patient: Chief Complaint: Chest Pain Instructions: ED Chest Pain NonCardiac Referrals: Sabrina Ochoa MD [Primary Care Provider] -
== END 2018-01-19 19:02 | disposition home or self-care (01) ==
PROVIDERS: Emergency Provider Emergency Medicine; Family Provider Internal Medicine; PCP Internal Medicine
DX: R07.9 Chest pain, unspecified (principal); I10 Essential (primary) hypertension; K21.9 Gastro-esophageal reflux disease without esophagitis; Z79.82 Long term (current) use of aspirin; Z79.899 Other long term (current) drug therapy
CPT/HCPCS: 71046; 80048; 84484; 85025; 93005; 99284; A4216

== ENCOUNTER → 2018-01-31 09:10 | Day surgery (SDC) | payer MEDICAID, SELFPAY ==
--- NOTE | 2018-01-31 11:13 | CL.D_ITS ---
Patient Name: KIRK HOOKS Study Date: 01/31/2018 Performing: Rg Faulkner MD Ht: 64.17 inches 163 cm : 1965 Wt: 158.73 lbs 72 kg Age: 52 Gender: female BSA: 1.78 PROCEDURE(S) PERFORMED [id number]/COR/LV CLINICAL PROFILE AND INDICATIONS INDICATIONS: 52-year-old lady with a history of chest pain with recurrent admissions to the [facility] for the same CONCLUSIONS Normal coronary arteries Normal LV size, wall motion,and systolic function RECOMMENDATIONS DESCRIPTION OF PROCEDURE The patient arrived to the procedure lab. The risks and benefits of the procedure as well as a full d escription of our services here and current unavailability of surgical backup were fully explained to the patient and/or their significant other prior to the catheterization. The Timeout was completed, verifying the correct patient and procedure. The patient's procedural site was prepped and draped in the usual fashion. Local anesthetic was given subcutaneously to right radial region with Lidocaine 2% . Using a modified Seldinger technique, arterial access was obtained via the right radial artery, a 6 Fr sheath was inserted. Right Coronary Artery selective angiography was then performed in multiple v iews using a 5 Fr. 4.0 Medanales catheter. Left Coronary Artery selective angiography was performed in mu ltiple views using a 5 Fr. 4.0 Medanales catheter. Left Ventriculography was performed in MERIDA projection using a 5 Fr. Pigtail catheter. LV to AO pullback pressures were then recorded.The arterial sheath wa s pulled and a TR Band was applied for hemostasis CORONARY ANGIOGRAPHY DOMINANCE: Right Dominant LEFT HEART ASSESSMENT Left Ventricular Ejection Fraction: by LV Gram 60 % Normal Left Ventricular systolic function Normal Left Ventricular systolic function LEFT MAIN: Angiographically normal LEFT ANTERIOR DECENDING ARTERY: Angiographically normal CIRCUMFLEX ARTERY: Angiographically normal RIGHT CORONARY ARTERY: Angiographically normal COMPLICATIONS No Complications PROCEDURE MEDICATIONS Versed 1 mg IV Fentanyl 50 mcg IV Versed 1 mg IV Fentanyl 25 mcg IV Versed 1 mg IV Oxygen: 2 L/min via nasal cannula Heparin diluted in 23cc Heparinized saline. Patient given 10cc IA of this solution. 01/31/2018 10:56: 07 Verapamil 2.5mg, Ntg 100mcgs, 2000 units of Heparin diluted in 23cc Heparinized saline. Patient give n 10cc IA of this solution. 01/31/2018 10:56:07 SUMMARY OF HEMODYNAMIC DATA Time AIR REST ECG 10:32:01 AO 124/71 (94) SA 10:59:17 LV 111/3, 6 11:04:56 LV 107/-3, 5 11:06:03 LVp 130/-4, 9 11:06:08 AOp 138/62 (93) 11:06:13 Signed By Rg Faulkner MD On 01/31/2018 11:13:08 Rg Faulkner MD
== END ==
PROVIDERS: Family Provider Internal Medicine; PCP Internal Medicine; Visit Provider Internal Medicine Cardiovascular Disease
DX: R07.9 Chest pain, unspecified (principal); G47.33 Obstructive sleep apnea (adult) (pediatric); M79.7 Fibromyalgia; K21.9 Gastro-esophageal reflux disease without esophagitis; E66.9 Obesity, unspecified; Z68.28 Body mass index [BMI] 28.0-28.9, adult; Z79.82 Long term (current) use of aspirin; Z79.899 Other long term (current) drug therapy
CPT/HCPCS: 93458; 99152; 99153; J3010; J7040; C1769; C1894; Q9967

== ENCOUNTER → 2018-02-17 11:14 | Outpatient (CLI) | payer MEDICAID, SELFPAY ==
--- NOTE | 2018-02-17 11:16 | BI_ITS ---
MAMMOGRAPHY - BILATERAL SCREENING REASON FOR EXAM: Female, 52 years old. Routine annual screening examination. PERTINENT HISTORY: Mother with breast cancer. TECHNIQUE: Digital bilateral breast lázaro (3D mammographic acquisition) in the CC and MLO projections. 2-D mediolateral oblique (MLO) and craniocaudad (CC) views of both breasts were obtained. CAD: Full Field Digital Mammography with Computer Added Detection was performed. COMPARISON: Comparison is made with prior examination dated December 26, 2010. FINDINGS: Breast Composition: There are scattered areas of fibroglandular density. There are no dominant masses or suspicious calcifications. No other significant abnormalities are identified. There has been no significant change since the prior study. BI/SCREENING MAMM (CAD), BILAT IMPRESSION: Stable bilateral screening mammogram. Yearly follow-up mammogram recommended. (A) ASSESSMENT CATEGORY: BIRADS Category 1: Negative. A letter regarding these results will be sent to the patient by the facility within 30 days. Approximately 10% of breast cancers are not detected by mammography. A normal mammogram should not delay biopsy of a clinically suspicious abnormality. [id number] Electronically Signed: Chaitanya Zeng MD at 15:31 EDT Tel [phone], Service support ,
== END ==
PROVIDERS: Family Provider Internal Medicine; PCP Internal Medicine; Visit Provider Internal Medicine
DX: Z12.31 Encounter for screening mammogram for malignant neoplasm of breast (principal)
CPT/HCPCS: 77063; 77067

== ENCOUNTER 2018-04-24 11:25 | Emergency (ER) | payer MEDICAID, SELFPAY ==
--- NOTE | 2018-04-24 11:15 | RAD_ITS ---
STUDY: X-RAY CHEST REASON FOR EXAM: Female, 52 years old. Chest pain. TECHNIQUE: Single AP portable view of the chest. COMPARISON: Prior comparison studies are not available for review at this time. FINDINGS: Cardiac monitoring leads are present. The lungs are clear and expanded. There is no demonstrated pleural abnormality. There is borderline cardiomegaly. Normal mediastinum and gay. There is prominence of the pulmonary hilar arteries without peripheral pulmonary vascular congestion. There is atherosclerotic tortuosity of the aortic arch and descending thoracic aorta. Normal visualized thoracic spine. Normal visualized ribs, clavicles, and shoulders. There is no demonstrated abnormality of the visualized soft tissue structures of the upper abdomen. RAD/Chest 1 View IMPRESSION: Borderline cardiomegaly and mild pulmonary congestion. Electronically Signed: Dinora Lopez MD at 11:42 EDT , Service support ,
--- NOTE | 2018-04-24 11:25 | DT_ITS ---
This patient was seen during an EMR downtime April 18, 2018 - April 25, 2018. This patient may have a combination of paper and electronic documentation or all paper documentation. All documentation is viewable within the e-chart portion of [facility] for each patient visit.
--- NOTE | 2018-04-24 13:16 | EKG12_ITS ---
Test Reason : CP Blood Pressure : / mmHG Vent. Rate : 058 BPM Atrial Rate : 058 BPM P-R Int : 156 ms QRS Dur : 084 ms QT Int : 388 ms P-R-T Axes : 018 024 024 degrees QTc Int : 380 ms Sinus bradycardia Otherwise normal ECG When compared with ECG of 19-JAN-2018 17:21, No significant change was found Confirmed by VARGHESE EDUARDO ([id number]), news copy editor MAURA GRANGER ([id number]) on 05/09/2018 3:00:24 PM Referred By: Laila Newell Confirmed By:VARGHESE EDUARDO
[2018-04-26 09:02] LABS: BNP,B-Type NATRIURETIC PEPTIDE 3.8 pg/mL (0-100)
[2018-04-26 09:18] LABS: BUN 13 mg/dL (7-18); BUN/Creat Ratio 21.7 RATIO (10-20); Calcium,Total 8.7 mg/dL (8.5-10.1); Chloride 108 mmol/L (98-107); EST Glomerular Filtration Rate 111 mL/min (>60); Est Glom Filt Rate - Afr Amer 135 mL/min (>60); Glucose 75 mg/dL (74-106); Potassium 3.5 mmol/L (3.5-5.1); Sodium Level 142 mmol/L (136-145)
[2018-04-26 09:19] LABS: Anion Gap 5 (5-15)
[2018-04-26 11:40] LABS: Absolute Lymphocyte Count 2.11 X10^3/ul (0.83-4.51); Absolute Neutrophil Count 3.4 X10^3/uL (2.0-7.7); Basophil# 0.05 X10^3/uL; Basophil% 0.8 % (0-1); Eosinophil# 0.17 X10^3/uL; Eosinophils% 2.7 % (0-5); Hematocrit 42.9 % (37-47); Hemoglobin 14.2 g/dl (12.0-15.0); Lymphocyte # 2.11 X10^3/ul (4.0); Lymphocyte % 33.8 % (19-41); Mean Corp Hgb Conc 33.1 g/gl (32-36); Mean Corpuscular Hgb 28.6 pg (27.0-32.0); Mean Corpuscular Volume 86.3 fL (81-99); Mean Platelet Vol. 10.1 fl (6.2-12.0); Neutrophil # 3.41 X10^3/uL (2.7-7.7); Neutrophil % 54.5 % (47-70); POSITIVE COUNT NO; POSITIVE DIFFERENTIAL NO; POSITIVE MORPHOLOGY NO; Platelet Count 261 K/mm3 (150-450); RBC Distribution Width CV 13.6 % (11.6-14.6); RBC Distribution Width SD 41.9 fl (35.1-43.9); Red Blood Count 4.97 M/mm3 (4.2-5.4); White Blood Count 6.3 K/mm3 (4.4-11.0)
== END 2018-04-24 13:20 | disposition home or self-care (01) ==
LOC: ED 22:23
PROVIDERS: Emergency Provider Emergency Medicine; Family Provider Internal Medicine; PCP Internal Medicine
DX: R07.9 Chest pain, unspecified (principal)
CPT/HCPCS: 71045; 80048; 83880; 84484; 85025; 93005; 99283; J2405

== ENCOUNTER 2018-05-05 17:36 | Emergency (ER) | payer MEDICAID, SELFPAY ==
[2018-05-05 17:37] VITALS: BP 127/61; PULSE 64; RESP 24; TEMP 36.6; O2SAT 99; BMI 29.5
--- NOTE | 2018-05-05 17:39 | EKG12_ITS ---
Test Reason : CP Blood Pressure : / mmHG Vent. Rate : 058 BPM Atrial Rate : 058 BPM P-R Int : 148 ms QRS Dur : 084 ms QT Int : 416 ms P-R-T Axes : 042 011 031 degrees QTc Int : 408 ms SINUS BRADYCARIDA OTHERWISE NORMAL EKG Confirmed by VARGHESE EDUARDO ([id number]), continuity editor MAURA GRANGER ([id number]) on 05/09/2018 10:16:21 AM Referred By: PAYTON/MARK Confirmed By:VARGHESE EDUARDO
--- NOTE | 2018-05-05 17:40 | RAD_ITS ---
STUDY: X-RAY CHEST REASON FOR EXAM: Female, 52 years old. Left breast pain starting last night TECHNIQUE: Single AP portable view of the chest. COMPARISON: 01/19/2018 FINDINGS: The lungs are clear and expanded. There is no demonstrated pleural abnormality. Normal size heart. Normal mediastinum and gay. Normal visualized pulmonary arteries. Normal visualized aortic arch and descending thoracic aorta. Normal visualized thoracic spine. Normal visualized ribs, clavicles, and shoulders. There is no demonstrated abnormality of the visualized soft tissue structures of the upper abdomen. RAD/Chest 1 View (Portable) IMPRESSION: Normal x-ray examination of the chest. Electronically Signed: Ascencion Gutierrez DO at 18:11 EDT Tel , Service support ,
[2018-05-05 18:02] VITALS: BP 113/51; PULSE 73; RESP 14; O2SAT 99
[2018-05-05 18:06] VITALS: O2SAT 100
[2018-05-05 18:10] LABS: Absolute Lymphocyte Count 3.15 X10^3/ul (0.83-4.51); Absolute Neutrophil Count 4.6 X10^3/uL (2.0-7.7); Basophil# 0.04 X10^3/uL; Basophil% 0.5 % (0-1); Eosinophil# 0.17 X10^3/uL; Hematocrit 40.6 % (37-47); Hemoglobin 13.5 g/dl (12.0-15.0); Lymphocyte # 3.15 X10^3/ul (4.0); Mean Corp Hgb Conc 33.3 g/gl (32-36); Mean Corpuscular Hgb 28.5 pg (27.0-32.0); Mean Corpuscular Volume 85.8 fL (81-99); Mean Platelet Vol. 9.4 fl (6.2-12.0); Monocyte# 0.56 X10^3/uL; Monocyte% 6.6 % (0-10); Neutrophil # 4.59 X10^3/uL (2.7-7.7); Neutrophil % 53.9 % (47-70); Platelet Count 244 K/mm3 (150-450); RBC Distribution Width CV 13.3 % (11.6-14.6); RBC Distribution Width SD 42.4 fl (35.1-43.9); Red Blood Count 4.73 M/mm3 (4.2-5.4); White Blood Count 8.5 K/mm3 (4.4-11.0)
[2018-05-05 18:11] LABS: POSITIVE COUNT NO; POSITIVE DIFFERENTIAL NO; POSITIVE MORPHOLOGY NO
--- NOTE | 2018-05-05 18:21 | ED.DCSUM_ITS ---
- ER Visit Summary Date of Service: 05/05/18 Chief Complaint: Chest pain History of Present Illness: The patient is a 52 F waxing and waning left-sided chest pain since yesterday evening. This morning numbness down left arm. Seen at PCP office, 2 nitro was given. States pain is a 3. States that shortness of breath with the nitro. No recent cough. No vomiting. History of hypertension and prediabetes. Denies tobacco. No family history of MIs at a young age. No recent travel or surgeries. Patient followed by Dr. Gonzalez cardiology. Records reviewed noted heart cath performed by Dr. Faulkner January 2018 here with normal coronary arteries and EF of 60%. Discussed with the patient, states she did follow with her's chemical educator last month. Prescription of Imdur was written however she has not started this. Physical Examination: General: Alert and oriented ?3, no acute distress HEENT: Normocephalic, atraumatic. Moist mucosa membranes Neck: supple, nontender. Cardiovascular: Regular rate and rhythm, no murmurs Respiratory: Normal breath sounds, symmetric, no distress Abdomen: Soft, nontender, nondistended Extremities: Nontender, no edema, pulses intact ?4 Neuro: no focal neurological deficits. Test Results: EKG sinus rate of [address] or T-wave changes. Troponin negative. Chest x-ray negative. CBC, BMP negative. Emergency Department Course and Treatment: Patient negative EKG. Cardiac workup negative. She was given aspirin. Patient with a normal cardiac cath 3 months ago. She admits to stress right before symptoms. She was prescribed Imdur by her chemical educator which she has not started. She is monitor symptoms improved. Discussed with patient treatment suggested could be coronary spasms as he is being treated for. She states she has a prescription at home, she is supposed to take half a tab daily. Discussed with patient to start this at home. She will monitor for lightheaded symptoms. She will follow-up with her PCP and chemical educator. She return if any worsening symptoms. All questions were answered. Treatment Plan: [] Disposition: Discharge Impression: Atypical chest pain This note was generated with Eko USA[employer] software. It may contain incorrect words, spelling, and punctuation that were not noted in review of the chart prior to signing ED Disposition - Plan for ED Patient: Disposition: Home or Assisted Living Chief Complaint: Chest Pain Diagnosis: Atypical chest pain Instructions: ED Chest Pain Atypical Unkn Cause Referrals: Sabrina Ochoa MD [Primary Care Provider] - Gil Gonzalez MD [STAFF PHYSICIAN] - 3-5 Days Additional Instructions: Start1/2 tab of your isosorbide nitrate written by your chemical educator. Follow- up with your chemical educator.
[2018-05-05 18:25] LABS: Anion Gap 4 (5-15); BUN 13 mg/dL (7-18); BUN/Creat Ratio 25.2 RATIO (10-20); Calcium,Total 9.2 mg/dL (8.5-10.1); Chloride 106 mmol/L (98-107); Creatinine, Serum 0.52 mg/dL (0.55-1.02); EST Glomerular Filtration Rate 132 mL/min (>60); Est Glom Filt Rate - Afr Amer 159 mL/min (>60); Glucose 104 mg/dL (74-106); Potassium 3.5 mmol/L (3.5-5.1); Sodium Level 140 mmol/L (136-145)
[2018-05-05] MEDS: Aspirin 325 MG Tablet PO (18:28)
[2018-05-05 19:33] VITALS: BP 121/67; PULSE 75; RESP 23; O2SAT 98
[2018-05-05 20:25] VITALS: BP 107/74; PULSE 78; RESP 15; O2SAT 99
== END 2018-05-05 20:26 | disposition home or self-care (01) ==
PROVIDERS: Emergency Provider Emergency Medicine; Family Provider Internal Medicine; PCP Internal Medicine
DX: R07.89 Other chest pain (principal); I10 Essential (primary) hypertension; K21.9 Gastro-esophageal reflux disease without esophagitis; Z79.899 Other long term (current) drug therapy
CPT/HCPCS: 71045; 80048; 84484; 85025; 93005; 99285

== ENCOUNTER 2018-05-15 13:38 | Emergency (ER) | payer MEDICAID, SELFPAY ==
[2018-05-15 13:39] VITALS: BP 154/72; PULSE 62; RESP 15; TEMP 37.1; O2SAT 96; BMI 29.2
--- NOTE | 2018-05-15 13:54 | RAD_ITS ---
STUDY: X-RAY CHEST REASON FOR EXAM: Female, 52 years old. Chest pain TECHNIQUE: Single view of the chest was obtained COMPARISON: May 05, 2018 chest radiograph FINDINGS: No lung consolidation, pleural effusion or pneumothorax. Mild marginal the right hilar shadow seen. Cardiac size is stable. Osseous structures demonstrate no acute abnormalities. IMPRESSION: Stable lung findings since previous examination Electronically Signed: Maxwell Rothman, at 14:12 EDT Tel , Service support , RAD/Chest 1 View (Portable)
--- NOTE | 2018-05-15 13:54 | EKG12_ITS ---
Test Reason : CP Blood Pressure : / mmHG Vent. Rate : 063 BPM Atrial Rate : 063 BPM P-R Int : 132 ms QRS Dur : 084 ms QT Int : 386 ms P-R-T Axes : 036 002 022 degrees QTc Int : 395 ms Normal sinus rhythm Normal ECG Confirmed by ERICK BOYKIN, EDUARDO ([id number]), features editor FILOMENA KIM ([id number]) on 05/19/2018 3:48:45 PM Referred By: ALLEGRA/MARK Confirmed By:EDUARDO SUAREZ MD
[2018-05-15 14:00] LABS: Absolute Lymphocyte Count 1.59 X10^3/ul (0.83-4.51); Absolute Neutrophil Count 5.4 X10^3/uL (2.0-7.7); Basophil# 0.03 X10^3/uL; Basophil% 0.4 % (0-1); Eosinophil# 0.02 X10^3/uL; Eosinophils% 0.3 % (0-5); Hematocrit 37.8 % (37-47); Hemoglobin 12.5 g/dl (12.0-15.0); Lymphocyte # 1.59 X10^3/ul (4.0); Lymphocyte % 21.1 % (19-41); Mean Corp Hgb Conc 33.1 g/gl (32-36); Mean Corpuscular Hgb 28.2 pg (27.0-32.0); Mean Corpuscular Volume 85.1 fL (81-99); Mean Platelet Vol. 9.3 fl (6.2-12.0); Monocyte# 0.46 X10^3/uL; Monocyte% 6.1 % (0-10); Neutrophil # 5.44 X10^3/uL (2.7-7.7); POSITIVE COUNT NO; POSITIVE DIFFERENTIAL NO; POSITIVE MORPHOLOGY NO; Platelet Count 224 K/mm3 (150-450); RBC Distribution Width CV 13.5 % (11.6-14.6); Red Blood Count 4.44 M/mm3 (4.2-5.4); White Blood Count 7.6 K/mm3 (4.4-11.0)
[2018-05-15] MEDS: MethylPREDNISolone 125 MG/2 ML Vial IV (14:04)
[2018-05-15] MEDS: Aspirin 81 MG TAB.CHEW 324 MG PO (14:04)
[2018-05-15] MEDS: 0.9% Normal Saline 1,000 ML 150 ML IV (14:07)
[2018-05-15 14:15] LABS: Anion Gap 6 (5-15); BUN 12 mg/dL (7-18); BUN/Creat Ratio 25.6 RATIO (10-20); Calcium,Total 8.9 mg/dL (8.5-10.1); Chloride 109 mmol/L (98-107); Creatinine, Serum 0.47 mg/dL (0.55-1.02); EST Glomerular Filtration Rate 147 mL/min (>60); Est Glom Filt Rate - Afr Amer 178 mL/min (>60); Estimated Creatinine Clearance 118.16 ml/min; Glucose 114 mg/dL (74-106); Potassium 3.8 mmol/L (3.5-5.1); Sodium Level 142 mmol/L (136-145)
[2018-05-15 15:40] VITALS: BP 148/71; PULSE 64; RESP 20; O2SAT 95
--- NOTE | 2018-05-15 15:52 | ED.RN ---
pt complains of 7/10 pressure in the chest like someone sitting on her chestand notes a palpitations sensation. physician advised.
[2018-05-15 16:30] VITALS: BP 153/76; PULSE 68; RESP 14; O2SAT 97
--- NOTE | 2018-05-15 16:30 | ED.DCSUM_ITS ---
- ER Visit Summary Date of Service: 05/15/18 Chief Complaint: Chest pain History of Present Illness: The patient is a 52 F with history of shingles to the left chest. Today she is complaining of increased pain. She is also having some intermittent palpitations. She states she had a heart cath a year ago or so that was completely normal. She states her assistant guest services manager however told her that she could be having some vasospasm. Physical Examination: Blood pressure is 154/72, temperature 98.7, heart rate 62 , respiratory rate 15, pulse ox 96% on room air. Head and neck examination is unremarkable. Heart is regular rate and rhythm without murmur. Lung sounds are clear. Abdomen is soft nontender. Skin examination reveals dried shingles lesions to the left lateral chest wall. Lower external examination was no calf tenderness or edema. Test Results: EKG is sinus at 63 with no sign of acute ischemia. CBC and chemistry studies are unremarkable. Troponin is negative. Chest x-ray reveals stable lung findings. Emergency Department Course and Treatment: Patient was given IV fluids along with a dose of Solu-Medrol. She has recently been on prednisone for her shingles. She took 20 mg for 3 days and then 10 mg today. On review of cardiac catheterization technician, patient does have occasional PVCs or PACs. We discussed the possibility of blood clot as patient does have a history of DVT. I advised her her d-dimer would be elevated at this time secondary to her shingles. Clinically she does not have any signs or symptoms of a blood clot. I do not think it is worth the extra radiation for the CT scan. She asked that I speak with her assistant guest services manager, Dr. Stevenson. He was contacted and wanted to ensure the patient is currently taking 120 mg of verapamil and her low-dose isosorbide. This was reiterated to her. She is to follow-up in the office. She is given a prescription for prednisone taper. Treatment Plan: [] Disposition: Discharge Impression: 1. Atypical chest pain 2. Varicella-zoster This note was generated with [employer] software. It may contain incorrect words, spelling, and punctuation that were not noted in review of the chart prior to signing ED Disposition - Plan for ED Patient: Disposition: Home or Assisted Living Chief Complaint: Chest Pain Instructions: ED Chest Pain Atypical Unkn Cause, ED Palpitations, ED Shingles Prescriptions: Prednisone 10 mg PO UD #33 tablet Referrals: Gil Stevenson MD [STAFF PHYSICIAN] - Sabrina Ochoa MD [Primary Care Provider] -
--- NOTE | 2018-05-15 16:30 | ED.DEP ---
ED Disposition - Plan for ED Patient: Disposition: Home or Assisted Living Chief Complaint: Chest Pain Instructions: ED Chest Pain Atypical Unkn Cause, ED Palpitations, ED Shingles Prescriptions: Prednisone 10 mg PO UD #33 tablet Referrals: Sabrina Ochoa MD [Primary Care Provider] - Gil Stevenson MD [STAFF PHYSICIAN] -
[2018-05-15 16:38] VITALS: BP 146/71; PULSE 58; RESP 16; O2SAT 98
== END 2018-05-15 16:42 | disposition home or self-care (01) ==
PROVIDERS: Emergency Provider Emergency Medicine; Family Provider Internal Medicine; PCP Internal Medicine
DX: R07.89 Other chest pain (principal); B01.9 Varicella without complication; M79.7 Fibromyalgia; Z86.718 Personal history of other venous thrombosis and embolism; Z79.899 Other long term (current) drug therapy
CPT/HCPCS: 71045; 80048; 84484; 85025; 93005; 96361; 96374; 99284; J7030; A4216

== ENCOUNTER → 2018-07-29 10:07 | Outpatient (CLI) | payer MEDICAID, SELFPAY ==
--- NOTE | 2018-07-29 10:10 | RAD_ITS ---
STUDY: X-RAY CHEST REASON FOR EXAM: Female, 52 years old. Chest congestion. TECHNIQUE: PA and lateral views of the chest. COMPARISON: Comparison is made with prior study dated May 15, 2018. FINDINGS: The lungs are clear and expanded. There is no demonstrated pleural abnormality. Normal size heart. Normal mediastinum and gay. Normal visualized pulmonary arteries. Normal visualized aortic arch and descending thoracic aorta. There are diffuse degenerative changes of the visualized thoracic spine. Normal visualized ribs, clavicles, and shoulders. There is no demonstrated abnormality of the visualized soft tissue structures of the upper abdomen. RAD/Chest PA and Lateral IMPRESSION: Normal x-ray examination of the chest. Electronically Signed: Chaitanya Zeng MD at 10:30 EDT Tel [phone], Service support ,
== END ==
PROVIDERS: Family Provider Internal Medicine; PCP Internal Medicine; Visit Provider Physician Assistant Surgical
DX: R09.89 Other specified symptoms and signs involving the circulatory and respiratory systems (principal)
CPT/HCPCS: 71046

== ENCOUNTER 2018-09-25 13:17 | Emergency (ER) | payer MEDICAID, SELFPAY ==
[2018-09-25 13:18] VITALS: BP 134/63; PULSE 68; RESP 20; TEMP 36.2; O2SAT 98; BMI 31.1
--- NOTE | 2018-09-25 13:28 | RAD_ITS ---
STUDY: X-RAY CHEST REASON FOR EXAM: Female, 52 years old. Chest pain TECHNIQUE: Single AP portable view of the chest. COMPARISON: 07/29/2018 FINDINGS: The lungs are clear and expanded. There is no demonstrated pleural abnormality. Normal size heart. Normal mediastinum and gay. Normal visualized pulmonary arteries. Normal visualized aortic arch and descending thoracic aorta. Normal visualized thoracic spine. Normal visualized ribs, clavicles, and shoulders. There is no demonstrated abnormality of the visualized soft tissue structures of the upper abdomen. RAD/Chest 1 View (Portable) IMPRESSION: Normal x-ray examination of the chest. Electronically Signed: Ascencion Gutierrez DO at 14:29 EST Tel , Service support ,
--- NOTE | 2018-09-25 13:28 | EKG12_ITS ---
Test Reason : CP Blood Pressure : / mmHG Vent. Rate : 059 BPM Atrial Rate : 059 BPM P-R Int : 154 ms QRS Dur : 080 ms QT Int : 392 ms P-R-T Axes : 045 013 008 degrees QTc Int : 388 ms Sinus bradycardia Otherwise normal ECG Confirmed by ERICK BOYKIN, EDUARDO ([id number]), visual effects editor FILOMENA KIM ([id number]) on 09/28/2018 11:12:19 AM Referred By: ANGELIA Confirmed By:EDUARDO SUAREZ MD
--- NOTE | 2018-09-25 13:46 | ED.DCSUM_ITS ---
- ER Visit Summary Date of Service: 09/25/18 Chief Complaint: [] Chest pain this morning after discussion with History of Present Illness: The patient is a 52 F [] she reports that she developed chest pain after some type of a discussion with her that caused her to have increased stress. She indicates she has history of chronic chest pain she had prior extensive evaluation including a cardiac cath [address] Faulkner that showed no signs of CAD, nuclear stress test by Dr. Cai that have also been negative. She indicates the chest pain persisted and she came in for evaluation. No fever no cough no history of PE she recalls having a DVT in her left leg years ago nothing recent Physical Examination: [] Is resting comforting the bed her blood pressure is 138/63 her vital signs otherwise within normal range head neck chest unremarkable lungs are clear abdomen soft nontender heart tones are normal extremities show no cyanosis clubbing or edema neurologically she is awake moving all 4 her pulses are symmetric Test Results: [] Emergency Department Course and Treatment: [] EKG shows a sinus rhythm nothing acute Screening labs troponin chest x-ray were negative, she did have cardiac cath as she reported results in the computer showed normal coronary arteries normal LV size wall motion and systolic function please see that report, on reevaluation she did have an elevated d-dimer but she has had that in the past she probably had prior negative CTAs, we discussed all the above with her we had ordered a CTA and the CTA today showed again nothing acute no PE or dissection Woke with Dr. Cai her roll cutter he recommended that we repeat the troponin and if that is negative for to follow-up with him tomorrow we discussed this with the patient she was comfort with that plan she understands exact etiology of her chest pain is unclear we discussed inpatient versus outpatient management she is very comfortable with outpatient management and if the troponin is negative will follow up with Dr. Cai tomorrow Treatment Plan: [] Disposition: [] Home stable Impression: [] Acute recurrent chest pain etiology unclear This note was generated with [employer] software. It may contain incorrect words, spelling, and punctuation that were not noted in review of the chart prior to signing ED Disposition - Plan for ED Patient: Chief Complaint: Chest Pain Referrals: Sabrina Ochoa MD [Primary Care Provider] -
[2018-09-25 13:56] LABS: Absolute Lymphocyte Count 2.23 X10^3/ul (0.83-4.51); Absolute Neutrophil Count 4.3 X10^3/uL (2.0-7.7); Basophil# 0.04 X10^3/uL; Basophil% 0.5 % (0-1); Eosinophil# 0.09 X10^3/uL; Eosinophils% 1.2 % (0-5); Hematocrit 39.4 % (37-47); Hemoglobin 12.8 g/dl (12.0-15.0); Lymphocyte # 2.23 X10^3/ul (4.0); Lymphocyte % 30.5 % (19-41); Mean Corp Hgb Conc 32.5 g/gl (32-36); Mean Corpuscular Hgb 28.1 pg (27.0-32.0); Mean Corpuscular Volume 86.4 fL (81-99); Mean Platelet Vol. 9.6 fl (6.2-12.0); Monocyte# 0.61 X10^3/uL; Monocyte% 8.3 % (0-10); Neutrophil # 4.33 X10^3/uL (2.7-7.7); Neutrophil % 59.4 % (47-70); Platelet Count 245 K/mm3 (150-450); RBC Distribution Width CV 13.7 % (11.6-14.6); RBC Distribution Width SD 43.2 fl (35.1-43.9); Red Blood Count 4.56 M/mm3 (4.2-5.4); White Blood Count 7.3 K/mm3 (4.4-11.0)
[2018-09-25 13:57] LABS: POSITIVE COUNT NO; POSITIVE DIFFERENTIAL NO; POSITIVE MORPHOLOGY NO
[2018-09-25 14:03] LABS: D-Dimer Quantitative (DVT/PE) 2.72 FEU/ug/m (0.27-0.49)
--- NOTE | 2018-09-25 14:09 | CT_ITS ---
STUDY: CTA CHEST REASON FOR EXAM: Female, 52 years old. Elevated d-dimer RADIATION DOSAGE (If Supplied By Facility): CTDIvol = ( 14.20 ) mGy, DLP = ( 642.58 ) mGycm TECHNIQUE: The examination was performed with the intravenous administration of 100 ml of Isovue 370 contrast material. Post-processing of the angiographic images was performed, with multiplanar reformation and 3D reconstruction. Individualized dose optimization techniques were used for this CT. COMPARISON: 01/10/2018 FINDINGS: Normal enhancement of the main pulmonary artery and right and left pulmonary arteries. Normal enhancement of the bilateral peripheral pulmonary arteries. There is no demonstrated pulmonary embolism. Normal thoracic aorta and visualized great vessels. There is no demonstrated aortic dissection. Normal heart and pericardium. Normal mediastinum. Normal hilar regions. Normal visualized trachea and bronchi. The lungs are well expanded. Small amount of bibasilar airspace disease, likely atelectasis. Small amount of subjacent pleural thickening, stable from prior exam. Lungs are otherwise clear. Normal chest wall structures. Normal osseous structures. Stable appearance of cysts within the liver. Otherwise, upper abdomen is within normal limits CT/CTA Chest W/WO Contrast IMPRESSION: Normal CTA chest examination, without a demonstrated pulmonary embolism or arterial dissection. Electronically Signed: Ascencion Gutierrez DO at 15:18 EST Tel , Service support ,
[2018-09-25 14:10] LABS: Anion Gap 6 (5-15); BUN 10 mg/dL (7-18); BUN/Creat Ratio 22.9 RATIO (10-20); Calcium,Total 8.7 mg/dL (8.5-10.1); Chloride 109 mmol/L (98-107); Creatinine, Serum 0.44 mg/dL (0.55-1.02); EST Glomerular Filtration Rate 159 mL/min (>60); Est Glom Filt Rate - Afr Amer 193 mL/min (>60); Estimated Creatinine Clearance 126.22 ml/min; Glucose 78 mg/dL (74-106); Potassium 3.8 mmol/L (3.5-5.1); Sodium Level 143 mmol/L (136-145)
--- NOTE | 2018-09-25 14:10 | ED.RN ---
ELEVATED DDIMER REPORTED TO THIS NURSE BY LAB. THEN REPORTED TO DR RAVI.
[2018-09-25] MEDS: Aspirin 81 MG TAB.CHEW 324 MG PO (14:16)
[2018-09-25 14:21] VITALS: BP 113/56; PULSE 73; RESP 15; O2SAT 97
--- NOTE | 2018-09-25 15:40 | ED.DEP ---
ED Disposition - Plan for ED Patient: Chief Complaint: Chest Pain Instructions: ED Chest Pain Atypical Unkn Cause Referrals: Sabrina Ochoa MD [Primary Care Provider] - Additional Instructions: Please follow-up with Dr. Cai tomorrow
[2018-09-25 16:30] VITALS: BP 127/69; PULSE 68; RESP 15
[2018-09-25 17:36] VITALS: BP 132/63; PULSE 76; RESP 12
[2018-09-25 18:10] VITALS: BP 141/67; PULSE 71
[2018-09-25 18:29] VITALS: BP 127/64; PULSE 71
== END 2018-09-25 18:29 | disposition home or self-care (01) ==
LOC: ED 14:40
PROVIDERS: Emergency Provider Emergency Medicine; Family Provider Internal Medicine; PCP Internal Medicine
DX: R07.9 Chest pain, unspecified (principal)
CPT/HCPCS: 71045; 71275; 80048; 84484; 85025; 85379; 93005; 96360; 96361; 99285; J7040; Q9967; A4216

== ENCOUNTER 2019-02-18 21:00 | Emergency (ER) | payer MEDICAID, SELFPAY ==
[2019-02-18 21:01] VITALS: BP 137/67; PULSE 81; RESP 16; TEMP 36.7; O2SAT 95; BMI 15.7
--- NOTE | 2019-02-18 21:08 | EKG12_ITS ---
Test Reason : CP Blood Pressure : / mmHG Vent. Rate : 080 BPM Atrial Rate : 080 BPM P-R Int : 164 ms QRS Dur : 084 ms QT Int : 372 ms P-R-T Axes : 050 005 023 degrees QTc Int : 429 ms Normal sinus rhythm Normal ECG Confirmed by ERICK BOYKIN, EDUARDO ([id number]), welt slasher TINA SMITH ([id number]) on 02/21/2019 7:54:01 AM Referred By: RANCHO Confirmed By:EDUARDO SUAREZ MD
--- NOTE | 2019-02-18 21:08 | RAD_ITS ---
STUDY: X-RAY CHEST REASON FOR EXAM: Female, 53 years old. Chest pain. TECHNIQUE: Single AP portable view of the chest. COMPARISON: 09/25/2018. FINDINGS: There is minimal left basilar atelectasis. There are no demonstrated pulmonary infiltrates. There is no demonstrated pleural abnormality. There is borderline cardiomegaly. Normal mediastinum and gay. Normal visualized pulmonary arteries. Normal visualized aortic arch and descending thoracic aorta. There are diffuse degenerative changes of the visualized thoracic spine. Normal visualized ribs, clavicles, and shoulders. There is no demonstrated abnormality of the visualized soft tissue structures of the upper abdomen. RAD/Chest 1 View (Portable) IMPRESSION: Borderline heart size. No evidence for acute cardiopulmonary pathology. Electronically Signed: Babar Cueto MD at 22:02 EDT , Service support ,
[2019-02-18] MEDS: 0.9% Normal Saline 1,000 ML 15 ML IV (21:18)
[2019-02-18] MEDS: Ondansetron 4 MG/2 ML Vial IV (21:18)
--- NOTE | 2019-02-18 21:20 | ED.DCSUM_ITS ---
- ER Visit Summary Date of Service: 02/18/19 Chief Complaint: [] Chest pain 6:30 PM History of Present Illness: The patient is a 53 F [] patient has history of chronic intermittent chest pain the etiology of which is unclear she has had extensive cardiac evaluation including stress test that were negative, cardiac cath in 2018 that showed no signs of coronary artery disease please see that report, she is on a proton pump inhibitor, she indicates she had quite a bit of stress today and stress triggers her chest pain she took some nitroglycerin that she called paramedics on their arrival she was given aspirin third dose of nitroglycerin she is brought in her chest pain is improved, she had no fever no cough no history of NV PE or DVT in fact recently she had d-dimer and CTA study for chest pain evaluation that was all negative Physical Examination: [] v signs are within normal range General, no distress resting comfortably HEENT is generally unremarkable The neck is supple no adenopathy Cardiovascular, regular rate and rhythm Lungs, clear bilateral Abdomen, soft nontender Extremities, no clubbing cyanosis or edema Neurologic, awake alert answering questions appropriately moving all 4 extremities Test Results: [] Emergency Department Course and Treatment: [] Patient's EKG shows a sinus rhythm no injury pattern and we did review some records in the computer she had a negative cardiac catheter 2018- CTAs negative other workups this is identical to previous presentations by her history Treatment Plan: [] Screening labs she does not wish to have anything for the pain is she is received aspirin nitroglycerin that usually helps Disposition: [] Impression: [] This note was generated with [employer] dictation software. It may contain incorrect words, spelling, and punctuation that were not noted in review of the chart prior to signing ED Disposition - Plan for ED Patient: Referrals: Sabrina Ochoa MD [Primary Care Provider] -
[2019-02-18 21:30] LABS: Absolute Lymphocyte Count 3.14 X10^3/ul (0.83-4.51); Absolute Neutrophil Count 4.8 X10^3/uL (2.0-7.7); Basophil# 0.07 X10^3/uL; Basophil% 0.8 % (0-1); Eosinophil# 0.35 X10^3/uL; Eosinophils% 3.8 % (0-5); Hematocrit 37.6 % (37-47); Hemoglobin 12.4 g/dl (12.0-15.0); Lymphocyte # 3.14 X10^3/ul (4.0); Lymphocyte % 34.4 % (19-41); Mean Corpuscular Hgb 28.2 pg (27.0-32.0); Mean Corpuscular Volume 85.5 fL (81-99); Mean Platelet Vol. 9.3 fl (6.2-12.0); Monocyte# 0.74 X10^3/uL; Monocyte% 8.1 % (0-10); Neutrophil # 4.82 X10^3/uL (2.7-7.7); Neutrophil % 52.8 % (47-70); Platelet Count 249 K/mm3 (150-450); RBC Distribution Width CV 13.6 % (11.6-14.6); RBC Distribution Width SD 42.6 fl (35.1-43.9); White Blood Count 9.1 K/mm3 (4.4-11.0)
[2019-02-18 21:31] LABS: POSITIVE COUNT NO; POSITIVE DIFFERENTIAL NO; POSITIVE MORPHOLOGY NO
[2019-02-18 21:49] LABS: Anion Gap 9 (5-15); BUN 13 mg/dL (7-18); BUN/Creat Ratio 18.5 RATIO (10-20); Calcium,Total 8.6 mg/dL (8.5-10.1); Chloride 111 mmol/L (98-107); EST Glomerular Filtration Rate 92 mL/min (>60); Est Glom Filt Rate - Afr Amer 111 mL/min (>60); Estimated Creatinine Clearance 59.76 ml/min; Glucose 104 mg/dL (74-106); Potassium 3.5 mmol/L (3.5-5.1); Sodium Level 145 mmol/L (136-145)
--- NOTE | 2019-02-18 21:54 | ED.DEP ---
ED Disposition - Plan for ED Patient: Instructions: ED Chest Pain Atypical Unkn Cause Referrals: Sabrina Ochoa MD [Primary Care Provider] - Additional Instructions: Follow-up with your boilermaker welder next few days return for change in symptoms
[2019-02-18 22:03] LABS: BNP,B-Type NATRIURETIC PEPTIDE 7.7 pg/mL (0-100)
[2019-02-18 22:25] VITALS: BP 112/86; PULSE 87; RESP 15; O2SAT 98
--- NOTE | 2019-02-18 22:26 | ED.RN ---
PT GIVEN WRITTEN AND VERBAL DISCHARGE INSTRUCTIONS. PT VERBALIZES UNDERSTANDING AND DENIES ANY OTHER QUESTIONS. PT REPORTS NOT FEELING WELL. THIS RN ASKS PT ABOUT GOING HOME AND SHE REPORTS THAT SHE TOLD THE DOCTOR SHE WANTED TO LEAVE. PT EDUCATED TO RETURN TO ED FOR ANY NEW OR WORSENED SX. PT DRESSES SELF AND REPORTS SHE CALLED FOR A RIDE. IV D/C AND COVERED WITH 2X2 GAUZE AND PAPER TAPE.
--- NOTE | 2019-02-18 22:42 | ED.RN ---
PATIENT STATES THAT SHE STILL HAS CHEST PAIN AND DOESN'T UNDERSTAND WHY THEY CAN'T FIND OUT WHAT IS WRONG WITH HER. THIS NURSE OFFERED TO LET ANOTHER DOCTOR SEE HER, SINCE HER DOCTOR IS ALREADY GONE, AND SHE SAID NO MY IS ALREADY ON HIS WAY. I ASKED HER IF SHE HAS AN IS SUPPORT ANALYST AND SHE SAID SHE SEES DR. SHANNON AND HE IS GOING TO REFER HER TO A SPECIAL IS SUPPORT ANALYST IN [place].
== END 2019-02-18 22:45 | disposition home or self-care (01) ==
PROVIDERS: Emergency Provider Emergency Medicine; Family Provider Internal Medicine; PCP Internal Medicine
DX: R07.9 Chest pain, unspecified (principal); G89.29 Other chronic pain; I10 Essential (primary) hypertension
CPT/HCPCS: 71045; 80048; 83880; 84484; 85025; 93005; 96374; 99285; A4216; J2405

== ENCOUNTER 2019-05-27 15:53 | Emergency (ER) | payer MEDICAID, SELFPAY ==
[2019-05-27 15:54] VITALS: BP 143/70; PULSE 99; RESP 22; TEMP 36.8; O2SAT 96; BMI 32.5
[2019-05-27 16:01] VITALS: BP 131/62; PULSE 99; RESP 16; O2SAT 96
--- NOTE | 2019-05-27 16:21 | RAD_ITS ---
STUDY: X-RAY CHEST REASON FOR EXAM: Female, 53 years old. Chest pain TECHNIQUE: Frontal view of the chest COMPARISON: 02/18/2019 FINDINGS: The lungs are clear. There are no pleural effusions. There is no pneumothorax. The heart is normal in size. The visualized osseous structures are within normal limits. RAD/Chest 1 View (Portable) IMPRESSION: No acute thoracic pathology. Electronically Signed: Edinson Hyde, at 16:37 EDT Tel , Service support ,
--- NOTE | 2019-05-27 16:21 | EKG12_ITS ---
Test Reason : CP Blood Pressure : / mmHG Vent. Rate : 099 BPM Atrial Rate : 099 BPM P-R Int : 152 ms QRS Dur : 082 ms QT Int : 324 ms P-R-T Axes : 055 020 022 degrees QTc Int : 415 ms Normal sinus rhythm Normal ECG Confirmed by EDUARDO SUAREZ MD ([id number]), newspaper photo editor SPARKLE VIZCAINO ([id number]) on 05/30/2019 2:12:19 PM Referred By: DAVID Confirmed By:EDUARDO SUAREZ MD
[2019-05-27 16:22] VITALS: O2SAT 96
--- NOTE | 2019-05-27 16:33 | ED.VISSUMM ---
- ER Visit Summary Date of Service: 05/27/19 Chief Complaint: Chest pain History of Present Illness: The patient is a 53 F history of chest pain for years. Had a cardiac catheterization within the last 3 years which was negative. Had a stress test 2 weeks ago at [facility] which is also negative. They states she gets almost daily chest pain associated with stress. Not exertional. She also has fibromyalgia history of hypertension and a prior sternal fracture. Physical Examination: Middle-aged female no acute distress vital signs stable afebrile. Pulse ox 96% on room air no hypoxia. HEENT exam unremarkable. Neck nontender. Lungs clear to auscultation bilaterally. Heart regular rate and rhythm no murmur rate about 95 chest wall she is totally reproducible chest wall tenderness anteriorly. There is no ecchymosis bruising no subcu air crepitance no redness or warmth. No signs of trauma. Abdomen soft nontender normal bowel sounds no peritoneal signs. Extremities moves all 4. Equal symmetric radial pulses. Normal shipping checker strength bilaterally. Normal dorsi plantar flexion. Calves are nontender without edema nor cords. Neurologically she is awake and alert with no focal motor deficits. Test Results: Portable 1 view chest x-ray shows no acute abnormality. Normal cardiac silhouette and mediastinum. Normal lung lopez. Read by myself. EKG sinus rhythm rate of 99 with no acute signs of NE or ischemia and unchanged from prior EKG from February. CBC normal. Chemistries normal. Troponin normal. Emergency Department Course and Treatment: Patient will undergo cardiac work-up. She states aspirin makes her nauseated so she refused the aspirin. Repeat exam at 1738 she is doing well. Clinical suspicion for this being cardiac is extremely low. Given that she has had a negative cardiac catheterization last years and a recent negative stress test. Plus the pain is reproducible and nonexertional. Treatment Plan: Discharge home. Follow-up with her primary care physician. Medically my suspicion for this being cardiac is extremely low. Is reproducible pain. She is had a negative recent stress test and a negative cardiac catheterization for the similar type of pain. Disposition: Discharged Impression: Acute chest wall pain History of fibromyalgia This note was generated with [employer] software. It may contain incorrect words, spelling, and punctuation that were not noted in review of the chart prior to signing ED Disposition - Plan for ED Patient: Referrals: Sabrina Ochoa MD [Primary Care Provider] -
[2019-05-27 16:35] LABS: Absolute Lymphocyte Count 3.29 X10^3/ul (0.83-4.51); Basophil# 0.05 X10^3/uL; Basophil% 0.4 % (0-1); Eosinophil# 0.16 X10^3/uL; Eosinophils% 1.3 % (0-5); Hematocrit 41.6 % (37-47); Hemoglobin 13.6 g/dl (12.0-15.0); Lymphocyte # 3.29 X10^3/ul (4.0); Lymphocyte % 26.3 % (19-41); Mean Corp Hgb Conc 32.7 g/gl (32-36); Mean Corpuscular Hgb 27.8 pg (27.0-32.0); Mean Corpuscular Volume 84.9 fL (81-99); Mean Platelet Vol. 9.9 fl (6.2-12.0); Monocyte# 0.96 X10^3/uL; Monocyte% 7.7 % (0-10); Neutrophil # 8.03 X10^3/uL (2.7-7.7); Platelet Count 303 K/mm3 (150-450); RBC Distribution Width CV 13.8 % (11.6-14.6); RBC Distribution Width SD 42.2 fl (35.1-43.9); White Blood Count 12.5 K/mm3 (4.4-11.0)
[2019-05-27 16:44] LABS: POSITIVE COUNT NO; POSITIVE DIFFERENTIAL NO; POSITIVE MORPHOLOGY NO
[2019-05-27 16:46] LABS: Anion Gap 9 (5-15); BUN 13 mg/dL (7-18); BUN/Creat Ratio 17.6 RATIO (10-20); Chloride 109 mmol/L (98-107); Creatinine, Serum 0.74 mg/dL (0.55-1.02); EST Glomerular Filtration Rate 87 mL/min (>60); Est Glom Filt Rate - Afr Amer 105 mL/min (>60); Estimated Creatinine Clearance 74.18 ml/min; Glucose 125 mg/dL (74-106); Potassium 3.5 mmol/L (3.5-5.1); Sodium Level 144 mmol/L (136-145)
[2019-05-27 17:15] VITALS: BP 128/69; PULSE 87; RESP 18; O2SAT 97
--- NOTE | 2019-05-27 17:39 | ED.DEP ---
ED Disposition - Plan for ED Patient: Disposition: Home or Assisted Living Instructions: CHEST WALL PAIN, Costochondritis Referrals: Sabrina Ochoa MD [Primary Care Provider] - As Needed Additional Instructions: Motrin for pain.
[2019-05-27 17:51] VITALS: BP 126/72; PULSE 82; RESP 14; O2SAT 96
== END 2019-05-27 17:51 | disposition home or self-care (01) ==
PROVIDERS: Emergency Provider Emergency Medicine; Family Provider Internal Medicine; PCP Internal Medicine
DX: R07.89 Other chest pain (principal); M79.7 Fibromyalgia; I10 Essential (primary) hypertension; Z86.718 Personal history of other venous thrombosis and embolism; Z79.899 Other long term (current) drug therapy
CPT/HCPCS: 71045; 80048; 84484; 85025; 93005; 99285